=== PATIENT | male | born 1975 | race Hispanic/Latino ===

== ENCOUNTER 2022-03-04 12:12 | Inpatient (IN) | payer SELFPAY ==
[~2022-03-04 12:12] MED LIST: Lorazepam 1 MG TAB PO PRN
[2022-03-04 12:47] LABS: #Basophils 0.1 thou/uL (0.0-0.2); #Lymphocytes 0.6 thou/uL (1.20-3.40); #Monocytes 0.8 thou/uL (0.11-0.59); #Neutrophils 9.5 thou/uL (1.40-6.50); %Basophils 1.2 % (0.0-1.0); %Eosinophils 0.1 % (0.0-10.0); %Lymphocytes 5.2 % (21.0-51.0); %Monocytes 7.4 % (0.0-10.0); Hemoglobin 15.4 g/dL (14.0-18.0); Mean Corpuscular HGB CONC 36.2 g/dL (32.0-36.0); Mean Corpuscular Hemoglobin 29.9 pg (27.0-31.0); Mean Corpuscular Volume 82.7 fL (78.0-98.0); Mean Platelet Volume 6.8 fL (7.4-10.4); Platelet Count 183 thou/uL (130-400); RBC Distribution Width 15.5 % (11.5-14.5); Red Blood Cell (RBC) Count 5.15 mill/uL (4.70-6.10); White Blood Cell (WBC) Count 11.1 thou/uL (4.8-10.8)
[2022-03-04 13:02] LABS: ALT (SGPT) 86 U/L (8-55); AST (SGOT) 210 U/L (5-34); Albumin 4.4 g/dL (3.5-5.0); Alkaline Phosphatase 96 U/L (40-110); Anion Gap 28 mmol/L (10-20); BUN (Urea Nitrogen) 5 mg/dL (8.9-20.6); Bilirubin, Total 3.2 mg/dL (0.2-1.2); Calc. Creatinine Clearance 0 mL/min (70-130); Calcium 8.7 mg/dL (7.8-10.44); Carbon Dioxide 20 mmol/L (22-29); Estimated GFR 106; Globulin 4.4 g/dL (2.4-3.5); Glucose 117 mg/dL (70-105); Lipase 489 U/L (8-78); Protein, Total 8.8 g/dL (6.0-8.3)
[2022-03-04] MEDS ORDERED: Aspirin Chewable 81 MG TAB ONE (13:31)
[2022-03-04 13:40] LABS: Chloride 69 mmol/L (98-107); Sodium 115 mmol/L (136-145)
[2022-03-04 13:49] LABS: CK (CPK) 4390 U/L (30-200)
[2022-03-04 15:08] LABS: Anion Gap 25 mmol/L (10-20); BUN (Urea Nitrogen) 5 mg/dL (8.9-20.6); Calc. Creatinine Clearance 0 mL/min (70-130); Calcium 8.2 mg/dL (7.8-10.44); Carbon Dioxide 19 mmol/L (22-29); Estimated GFR 110; Glucose 109 mg/dL (70-105)
[2022-03-04 15:14] LABS: Chloride 74 mmol/L (98-107); Potassium 1.8 mmol/L (3.5-5.1); Sodium 116 mmol/L (136-145)
[2022-03-04] MEDS ORDERED: Potassium Chloride 20 MEQ TAB ONE (15:37)
[2022-03-04] MEDS ORDERED: NS 0.9% w/ 20 MEQ KCL 0 ML ONE (15:37)
[2022-03-04] MEDS ORDERED: Lorazepam (BATCHED) 2 MG/ML SYR ONE (15:42)
[2022-03-04] MEDS ORDERED: Magnesium 2 GM/50 ML BAG (IN WATER) ONE (15:52)
[2022-03-04] MEDS ORDERED: Iopamidol-370 76% 500 ML 1 ML ONE (15:54)
[2022-03-04] MEDS ORDERED: 1/2 NS w/KCL 20 mEq 1,000 ML IV SCH (16:00)
[2022-03-04 16:21] LABS: Acetaminophen Less than 10.0 mcg/mL (10.0-30.0); Alcohol 65 mg/dL (Less than 10); Salicylate Less than 8.0 mg/dL (15.0-30.0)
[2022-03-04] MEDS ORDERED: Potassium Chloride 20 MEQ TAB PO STA (16:29)
[2022-03-04 17:01] LABS: Phosphorus 2.8 mg/dL (2.3-4.7)
[2022-03-04 17:03] LABS: Magnesium 1.5 mg/dL (1.6-2.6)
[2022-03-04 17:04] LABS: Anion Gap 23 mmol/L (10-20); BUN (Urea Nitrogen) 5 mg/dL (8.9-20.6); Calc. Creatinine Clearance 0 mL/min (70-130); Carbon Dioxide 18 mmol/L (22-29); Chloride 76 mmol/L (98-107); Estimated GFR 111; Glucose 117 mg/dL (70-105); Magnesium 1.5 mg/dL (1.6-2.6)
[2022-03-04 17:08] LABS: Potassium 2.3 mmol/L (3.5-5.1); Sodium 115 mmol/L (136-145)
[2022-03-04] MEDS ORDERED: hydrALAZINE 20 MG/ML VIAL SLOW IVP PRN (17:55)
[2022-03-04] MEDS ORDERED: Acetaminophen 325 MG TAB PO PRN (17:55)
[2022-03-04] MEDS ORDERED: Ondansetron ODT 4 MG TAB PO PRN ×2 (17:55→20:30)
[2022-03-04] MEDS ORDERED: Lorazepam 2 MG/ML VIAL SLOW IVP PRN (17:56)
[2022-03-04 17:58] VITALS: BMI 24.4
[2022-03-04] MEDS: Lactated Ringer's 1,000 ML IV SCH (17:58)
[2022-03-04 18:35] LABS: SARS-CoV-2 NAA Rapid Test Not Detected (NotDetected)
[2022-03-04] MEDS ORDERED: Magnesium Sulfate In Water 4 GM in Premix Bag 1 BAG IVPB SCH (18:45)
[2022-03-04 19:28] LABS: Bacteria/HPF None Seen HPF (None Seen); Bilirubin Negative (Negative); Blood, Urine 3+ (Negative); Clarity Clear (Clear); Glucose, Urine (Dipstick) Normal (Negative); Ketone, Urine Negative (Negative); Leukocyte Negative Leu/uL (Negative); Nitrite Negative (Negative); Protein, Urine (Dipstick) 30 mg/dL (Neg-Trace); RBC/HPF None Seen HPF (0-3); Specific Gravity, Urine 1.011 (1.002-1.036); Squamous Epithelial None Seen HPF (0-3); Urobilinogen Normal mg/dL (Less than 2); WBC/HPF 0-3 HPF (0-3)
[2022-03-04 19:32] LABS: Urine Culture Reflex No No
[2022-03-04] MEDS ORDERED: Potassium Chloride 20 MEQ TAB PO SCH (20:00)
[2022-03-04] MEDS ORDERED: Lorazepam 2 MG/ML VIAL IM PRN (20:30)
[2022-03-04 20:34] LABS: Anion Gap 19 mmol/L (10-20); BUN (Urea Nitrogen) 6 mg/dL (8.9-20.6); CK (CPK) 3858 U/L (30-200); Calc. Creatinine Clearance 143 mL/min (70-130); Calcium 8.2 mg/dL (7.8-10.44); Carbon Dioxide 24 mmol/L (22-29); Chloride 76 mmol/L (98-107); Estimated GFR 112; Glucose 104 mg/dL (70-105)
[2022-03-04 20:39] LABS: Sodium 117 mmol/L (136-145)
[2022-03-04] MEDS: Lorazepam 1 MG TAB PO SCH ×3 (20:40→20:41)
[2022-03-04] MEDS: Potassium Chloride 20 MEQ TAB PO SCH (21:22)
[2022-03-05] MEDS: Lorazepam 1 MG TAB PO SCH ×4 (00:27→17:16)
[2022-03-05] MEDS: Lactated Ringer's 1,000 ML IV SCH ×2 (00:31→09:46)
[2022-03-05 01:13] LABS: Anion Gap 17 mmol/L (10-20); BUN (Urea Nitrogen) 6 mg/dL (8.9-20.6); Calc. Creatinine Clearance 143 mL/min (70-130); Calcium 8.6 mg/dL (7.8-10.44); Carbon Dioxide 26 mmol/L (22-29); Chloride 81 mmol/L (98-107); Estimated GFR 112; Glucose 93 mg/dL (70-105); Sodium 122 mmol/L (136-145)
[2022-03-05 01:16] LABS: Potassium 2.1 mmol/L (3.5-5.1)
[2022-03-05] MEDS: Potassium Chloride 20 MEQ TAB PO SCH ×4 (02:09→21:27)
[2022-03-05] MEDS ORDERED: Lorazepam 1 MG TAB PO PRN (02:21)
[2022-03-05 04:22] LABS: #Lymphocytes 0.6 thou/uL (1.20-3.40); #Monocytes 0.8 thou/uL (0.11-0.59); #Neutrophils 6.6 thou/uL (1.40-6.50); %Basophils 0.2 % (0.0-1.0); %Eosinophils 0.2 % (0.0-10.0); %Lymphocytes 7.5 % (21.0-51.0); %Neutrophils 82.1 % (42.0-75.0); Hemoglobin 13.9 g/dL (14.0-18.0); Mean Corpuscular HGB CONC 35.7 g/dL (32.0-36.0); Mean Corpuscular Hemoglobin 30.1 pg (27.0-31.0); Mean Corpuscular Volume 84.2 fL (78.0-98.0); Mean Platelet Volume 7.2 fL (7.4-10.4); Platelet Count 141 thou/uL (130-400); RBC Distribution Width 15.5 % (11.5-14.5)
[2022-03-05 04:39] LABS: Anion Gap 16 mmol/L (10-20); BUN (Urea Nitrogen) 6 mg/dL (8.9-20.6); CK (CPK) 3426 U/L (30-200); Calc. Creatinine Clearance 145 mL/min (70-130); Calcium 8.8 mg/dL (7.8-10.44); Carbon Dioxide 24 mmol/L (22-29); Chloride 85 mmol/L (98-107); Estimated GFR 113; Glucose 94 mg/dL (70-105); Sodium 123 mmol/L (136-145)
[2022-03-05 04:41] LABS: Phosphorus 1.3 mg/dL (2.3-4.7)
[2022-03-05 04:43] LABS: Potassium 2.4 mmol/L (3.5-5.1)
[2022-03-05] MEDS ORDERED: Potassium Phosphate 30 MMOL in Sodium Chloride 0.9% 250 ML 250 ML IVPB SCH (05:15)
[2022-03-05] MEDS: Thiamine 100 MG TAB PO SCH (08:29)
[2022-03-05] MEDS: Multivit, Therapeutic 1 TAB PO SCH (08:29)
[2022-03-05] MEDS: Folic Acid 1 MG TAB PO SCH (08:29)
[2022-03-05 09:37] LABS: Anion Gap 15 mmol/L (10-20); BUN (Urea Nitrogen) 6 mg/dL (8.9-20.6); Calc. Creatinine Clearance 132 mL/min (70-130); Calcium 8.7 mg/dL (7.8-10.44); Carbon Dioxide 26 mmol/L (22-29); Chloride 86 mmol/L (98-107); Estimated GFR 110; Glucose 134 mg/dL (70-105); Sodium 124 mmol/L (136-145)
[2022-03-05 09:40] LABS: Potassium 2.6 mmol/L (3.5-5.1)
[2022-03-05] MEDS: 1/2 NS w/KCL 20 mEq 1,000 ML IV SCH ×2 (11:45→20:05)
[2022-03-05 13:28] LABS: Anion Gap 15 mmol/L (10-20); BUN (Urea Nitrogen) 6 mg/dL (8.9-20.6); Calc. Creatinine Clearance 125 mL/min (70-130); Calcium 8.3 mg/dL (7.8-10.44); Carbon Dioxide 23 mmol/L (22-29); Chloride 86 mmol/L (98-107); Estimated GFR 108; Glucose 164 mg/dL (70-105); Sodium 122 mmol/L (136-145)
[2022-03-05 13:39] LABS: Potassium 2.4 mmol/L (3.5-5.1)
[2022-03-05] MEDS ORDERED: Potassium Chloride 20 MEQ TAB PO SCH ×3 (15:00→20:00)
[2022-03-05 17:29] LABS: Anion Gap 15 mmol/L (10-20); BUN (Urea Nitrogen) 6 mg/dL (8.9-20.6); Calc. Creatinine Clearance 135 mL/min (70-130); Calcium 8.3 mg/dL (7.8-10.44); Carbon Dioxide 24 mmol/L (22-29); Chloride 88 mmol/L (98-107); Estimated GFR 111; Glucose 88 mg/dL (70-105); Sodium 124 mmol/L (136-145)
[2022-03-05 17:31] LABS: Potassium 2.8 mmol/L (3.5-5.1)
[2022-03-05] MEDS ORDERED: Potassium Bicarbonate/Cit Ac 20 MEQ TAB PO SCH (18:00)
[2022-03-05 21:43] LABS: Anion Gap 16 mmol/L (10-20); BUN (Urea Nitrogen) 5 mg/dL (8.9-20.6); Calc. Creatinine Clearance 130 mL/min (70-130); Carbon Dioxide 22 mmol/L (22-29); Chloride 88 mmol/L (98-107); Estimated GFR 109; Glucose 104 mg/dL (70-105); Sodium 123 mmol/L (136-145)
[2022-03-05 22:25] LABS: Phosphorus Less than 1.0 mg/dL (2.3-4.7)
[2022-03-05 22:25] LABS: Potassium 2.5 mmol/L (3.5-5.1)
[2022-03-05] MEDS ORDERED: Potassium Phosphate 30 MMOL in Sodium Chloride 0.9% 500 ML IVPB SCH (22:30)
[2022-03-06] MEDS: Potassium Chloride 20 MEQ TAB PO SCH ×6 (00:44→21:23)
[2022-03-06] MEDS: Lorazepam 1 MG TAB PO SCH (00:44)
[2022-03-06] MEDS: 1/2 NS w/KCL 20 mEq 1,000 ML IV SCH ×3 (04:54→19:15)
[2022-03-06] MEDS: Lorazepam 0.5 MG TAB PO SCH ×3 (05:40→17:05)
[2022-03-06 06:42] LABS: Hemoglobin 12.8 g/dL (14.0-18.0); Mean Corpuscular HGB CONC 33.7 g/dL (32.0-36.0); Mean Corpuscular Hemoglobin 29.2 pg (27.0-31.0); Mean Corpuscular Volume 86.7 fL (78.0-98.0); Mean Platelet Volume 6.9 fL (7.4-10.4); Platelet Count 132 thou/uL (130-400); RBC Distribution Width 15.6 % (11.5-14.5); Red Blood Cell (RBC) Count 4.38 mill/uL (4.70-6.10); White Blood Cell (WBC) Count 7.1 thou/uL (4.8-10.8)
[2022-03-06 06:58] LABS: Anion Gap 15 mmol/L (10-20); BUN (Urea Nitrogen) 4 mg/dL (8.9-20.6); Calc. Creatinine Clearance 140 mL/min (70-130); Calcium 8.5 mg/dL (7.8-10.44); Carbon Dioxide 25 mmol/L (22-29); Chloride 91 mmol/L (98-107); Estimated GFR 111; Glucose 86 mg/dL (70-105); Magnesium 1.2 mg/dL (1.6-2.6); Sodium 128 mmol/L (136-145)
[2022-03-06 07:01] LABS: CK (CPK) 1314 U/L (30-200); Phosphorus 2.3 mg/dL (2.3-4.7)
[2022-03-06] MEDS ORDERED: Potassium Chloride 20 MEQ in Lactated Ringer's 1,000 ML IV SCH (07:15)
[2022-03-06] MEDS ORDERED: Potassium Phosphate 30 MMOL in Sodium Chloride 0.9% 250 ML 250 ML IVPB SCH (07:15)
[2022-03-06] MEDS: Magnesium 2 GM/50 ML(in water) 2 GM in Premix Bag 1 BAG IVPB SCH ×3 (07:50→10:22)
[2022-03-06] MEDS: Folic Acid 1 MG TAB PO SCH (07:53)
[2022-03-06] MEDS: Thiamine 100 MG TAB PO SCH (07:53)
[2022-03-06] MEDS: Multivit, Therapeutic 1 TAB PO SCH (07:53)
[2022-03-06 17:23] LABS: Albumin 3.7 g/dL (3.5-5.0); Anion Gap 16 mmol/L (10-20); BUN (Urea Nitrogen) 4 mg/dL (8.9-20.6); BUN/Creatinine Ratio 5.26; Calc. Creatinine Clearance 143 mL/min (70-130); Calcium 8.4 mg/dL (7.8-10.44); Carbon Dioxide 24 mmol/L (22-29); Chloride 92 mmol/L (98-107); Estimated GFR 112; Glucose 81 mg/dL (70-105); Phosphorus 3.1 mg/dL (2.3-4.7); Potassium 3.2 mmol/L (3.5-5.1); Sodium 129 mmol/L (136-145)
[2022-03-07] MEDS: Lorazepam 0.5 MG TAB PO SCH (00:05)
[2022-03-07] MEDS: Potassium Chloride 20 MEQ TAB PO SCH ×6 (00:05→21:38)
[2022-03-07] MEDS: Lorazepam 1 MG TAB PO PRN ×3 (03:02→21:38)
[2022-03-07] MEDS ORDERED: Lorazepam 0.5 MG TAB PO PRN (06:00)
[2022-03-07 06:16] LABS: Anion Gap 13 mmol/L (10-20); BUN (Urea Nitrogen) 4 mg/dL (8.9-20.6); Calc. Creatinine Clearance 142 mL/min (70-130); Calcium 8.5 mg/dL (7.8-10.44); Carbon Dioxide 27 mmol/L (22-29); Chloride 95 mmol/L (98-107); Estimated GFR 111; Glucose 89 mg/dL (70-105); Magnesium 1.5 mg/dL (1.6-2.6); Phosphorus 2.3 mg/dL (2.3-4.7); Sodium 132 mmol/L (136-145)
[2022-03-07] MEDS: 1/2 NS w/KCL 20 mEq 1,000 ML IV SCH ×3 (06:25→23:30)
[2022-03-07] MEDS: Folic Acid 1 MG TAB PO SCH (08:51)
[2022-03-07] MEDS: Multivit, Therapeutic 1 TAB PO SCH (08:51)
[2022-03-07] MEDS: Thiamine 100 MG TAB PO SCH (08:51)
[2022-03-07] MEDS: Magnesium 2 GM/50 ML(in water) 2 GM in Premix Bag 1 BAG IVPB SCH ×3 (08:52→12:07)
[2022-03-07 09:22] LABS: CK (CPK) 642 U/L (30-200)
[2022-03-08] MEDS: Potassium Chloride 20 MEQ TAB PO SCH ×6 (00:35→20:45)
[2022-03-08] MEDS: Lorazepam 1 MG TAB PO PRN ×2 (03:40→21:58)
[2022-03-08] MEDS: 1/2 NS w/KCL 20 mEq 1,000 ML IV SCH (09:03)
[2022-03-08] MEDS: Multivit, Therapeutic 1 TAB PO SCH (09:03)
[2022-03-08] MEDS: Folic Acid 1 MG TAB PO SCH (09:03)
[2022-03-08] MEDS: Thiamine 100 MG TAB PO SCH (09:03)
[2022-03-08 10:07] LABS: Anion Gap 12 mmol/L (10-20); BUN (Urea Nitrogen) 4 mg/dL (8.9-20.6); CK (CPK) 326 U/L (30-200); Calc. Creatinine Clearance 0 mL/min (70-130); Carbon Dioxide 27 mmol/L (22-29); Chloride 93 mmol/L (98-107); Estimated GFR 108; Glucose 103 mg/dL (70-105); Magnesium 1.6 mg/dL (1.6-2.6); Potassium 3.4 mmol/L (3.5-5.1); Sodium 129 mmol/L (136-145)
[2022-03-08 10:10] LABS: Phosphorus 1.5 mg/dL (2.3-4.7)
[2022-03-08] MEDS: Magnesium 2 GM/50 ML(in water) 2 GM in Premix Bag 1 BAG IVPB SCH ×2 (11:33→15:06)
[2022-03-08] MEDS ORDERED: Potassium Phosphate 30 MMOL in Sodium Chloride 0.9% 250 ML 250 ML IVPB SCH (12:00)
[2022-03-09] MEDS: Potassium Chloride 20 MEQ TAB PO SCH ×4 (00:19→11:55)
[2022-03-09 05:39] LABS: Anion Gap 12 mmol/L (10-20); BUN (Urea Nitrogen) 5 mg/dL (8.9-20.6); Calc. Creatinine Clearance 0 mL/min (70-130); Calcium 9.1 mg/dL (7.8-10.44); Carbon Dioxide 27 mmol/L (22-29); Chloride 94 mmol/L (98-107); Estimated GFR 108; Glucose 86 mg/dL (70-105); Magnesium 1.9 mg/dL (1.6-2.6); Phosphorus 2.6 mg/dL (2.3-4.7); Potassium 3.4 mmol/L (3.5-5.1); Sodium 130 mmol/L (136-145)
[2022-03-09] MEDS: Folic Acid 1 MG TAB PO SCH (09:27)
[2022-03-09] MEDS: Thiamine 100 MG TAB PO SCH (09:28)
[2022-03-09] MEDS: Multivit, Therapeutic 1 TAB PO SCH (09:28)
[2022-03-09 11:22] VITALS: BP 100/66; TEMP 98.1
== END 2022-03-09 14:30 | disposition home or self-care (01) | DRG 643 ==
LOC: ERS 12:12 → CCU 16:03 → SJJU 17:34
PROVIDERS: ADMIT Family Medicine; ATTEND Family Medicine
DX: E22.2 Syndrome of inappropriate secretion of antidiuretic hormone (principal); K85.20 Alcohol induced acute pancreatitis without necrosis or infection; M62.82 Rhabdomyolysis; E83.42 Hypomagnesemia; E83.39 Other disorders of phosphorus metabolism; E87.6 Hypokalemia; Z20.822 Contact with and (suspected) exposure to COVID-19; F17.210 Nicotine dependence, cigarettes, uncomplicated; E86.9 Volume depletion, unspecified; K70.9 Alcoholic liver disease, unspecified; F10.20 Alcohol dependence, uncomplicated; R07.89 Other chest pain; I25.2 Old myocardial infarction; Z71.41 Alcohol abuse counseling and surveillance of alcoholic
CPT/HCPCS: 36415; 71045; 71275; 74177; 80048; 80053; 80307; 81001; 82533; 82550; 83690; 83735; 83930; 83935; 84100; 84443; 84484; 85025; 85027; 85379; 93005; 93010; 93306; 96361; 96374; 96375; J2060; J3411; J3475; J3480; J7030; J7050; J7120; Q9967; U0002

== ENCOUNTER 2025-03-10 17:56 | Inpatient (IN) | payer OTHER, SELFPAY ==
[~2025-03-10 17:56] MED LIST changes: +Iopamidol 370 76% 100 ML VIAL ONE; -Lorazepam 1 MG TAB PO PRN
[2025-03-10 19:11] LABS: #Basophils 0.03 10x3/uL (0.0-0.2); #Eosinophils Less than 0.03 10x3/uL (0.0-0.7); #Monocytes 0.63 10x3/uL (0.11-0.59); #Neutrophils 4.51 10x3/uL (1.40-6.50); %Basophils 0.5 % (0.0-1.0); %Eosinophils 0.2 % (0.0-10.0); %Lymphocytes 18.0 % (21.0-51.0); %Monocytes 9.9 % (0.0-10.0); %Neutrophils 71.1 % (42.0-75.0); Hematocrit 39.5 % (42.0-52.0); Hemoglobin 14.3 g/dL (14.0-18.0); Mean Corpuscular Hemoglobin 28.0 pg (27.0-31.0); Mean Corpuscular Volume 77.5 fL (78.0-98.0); Platelet Count 146 10x3/uL (130-400); Red Blood Cell (RBC) Count 5.10 mill/uL (4.70-6.10); White Blood Cell (WBC) Count 6.34 10x3/uL (4.8-10.8)
[2025-03-10 19:45] LABS: ALT (SGPT) 101 U/L (Less than 45); AST (SGOT) 163 U/L (11-34); Albumin 4.2 g/dL (3.1-4.5); Alkaline Phosphatase 76 U/L (40-110); Anion Gap 21 mmol/L (10-20); BUN (Urea Nitrogen) 6 mg/dL (8.9-20.6); Bilirubin, Total 2.1 mg/dL (0.3-1.2); Calc. Creatinine Clearance 0 mL/min (70-130); Calcium 9.6 mg/dL (7.8-10.44); Carbon Dioxide 21 mmol/L (22-29); Chloride 84 mmol/L (98-107); Globulin 4.6 g/dL (2.4-3.5); Glucose 104 mg/dL (70-105); Lipase 73 U/L (8-78); Potassium 2.4 mmol/L (3.5-5.1); Sodium 124 mmol/L (136-145)
[2025-03-10 19:48] LABS: Bacteria/HPF None Seen HPF (None Seen); CAUTI Indications for Culture Pelvic or flank pain; Glucose, Urine (Dipstick) Normal (Negative); Leukocyte Negative Leu/uL (Negative); Protein, Urine (Dipstick) 50 mg/dL (Neg-Trace); RBC/HPF 0-3 HPF (0-3); Specific Gravity, Urine 1.004 (1.002-1.036); WBC/HPF 0-3 HPF (0-3)
[2025-03-10 19:52] LABS: Urine Culture Reflex No No
[2025-03-10] MEDS ORDERED: Pantoprazole 40 MG VIAL ONE (20:13)
[2025-03-10] MEDS ORDERED: Ondansetron PF 4 MG/2 ML Vial ONE (20:13)
[2025-03-10] MEDS ORDERED: Potassium Chloride 20 MEQ (100 mL) BAG ONE (20:13)
[2025-03-10 20:22] LABS: Magnesium 1.1 mg/dL (1.6-2.6)
[2025-03-10 20:23] LABS: Acetaminophen Less than 10 mcg/mL (Less than 10); Salicylate Less than 8.0 mg/dL (Less than 8.0)
[2025-03-10 20:27] LABS: Troponin I Less than 0.010 ng/mL (< 0.028)
[2025-03-10] MEDS ORDERED: Magnesium 2 GM/50 ML BAG (IN WATER) ONE (22:14)
[2025-03-10] MEDS ORDERED: Ondansetron PF 4 MG/2 ML Vial IVP PRN (23:19)
[2025-03-10] MEDS ORDERED: Acetaminophen 325 MG TAB PO PRN (23:19)
[2025-03-10] MEDS ORDERED: Electrolyte Replacement Protocol 1 EACH FS SCH (23:30)
[2025-03-11 00:08] LABS: Cocaine Metabolite Screen Negative (Negative); THC/Cannabinoid Screen Negative (Negative); Tricyclic Screen Negative (Negative)
[2025-03-11] MEDS: Multivitamins, Adult 10 ML, Thiamine HCl 100 MG, Folic Acid 1 MG in Dextrose 5 %-0.45 %... IV SCH (01:15)
[2025-03-11] MEDS: Potassium Chloride 20 MEQ in Premix 1 BAG IVPB SCH ×2 (01:15→05:34)
[2025-03-11] MEDS: Magnesium Sulfate In Water 4 GM in Premix 1 BAG IVPB SCH ×2 (01:15→14:24)
[2025-03-11 01:23] VITALS: BMI 25.5
[2025-03-11 04:58] LABS: ALT (SGPT) 86 U/L (Less than 45); AST (SGOT) 127 U/L (11-34); Albumin 3.7 g/dL (3.1-4.5); Alkaline Phosphatase 71 U/L (40-110); Anion Gap 18 mmol/L (10-20); BUN (Urea Nitrogen) 7 mg/dL (8.9-20.6); Bilirubin, Total 2.8 mg/dL (0.3-1.2); Calc. Creatinine Clearance 120 mL/min (70-130); Calcium 8.7 mg/dL (7.8-10.44); Carbon Dioxide 23 mmol/L (22-29); Chloride 89 mmol/L (98-107); Globulin 4.0 g/dL (2.4-3.5); Glucose 101 mg/dL (70-105); Magnesium 1.4 mg/dL (1.6-2.6); Potassium 2.2 mmol/L (3.5-5.1); Sodium 128 mmol/L (136-145)
[2025-03-11 05:02] LABS: #Basophils Less than 0.03 10x3/uL (0.0-0.2); #Eosinophils 0.05 10x3/uL (0.0-0.7); #Monocytes 0.67 10x3/uL (0.11-0.59); #Neutrophils 4.38 10x3/uL (1.40-6.50); %Basophils 0.3 % (0.0-1.0); %Eosinophils 0.8 % (0.0-10.0); %Lymphocytes 18.5 % (21.0-51.0); %Monocytes 10.6 % (0.0-10.0); %Neutrophils 69.5 % (42.0-75.0); Hematocrit 35.9 % (42.0-52.0); Hemoglobin 12.9 g/dL (14.0-18.0); Mean Corpuscular Hemoglobin 28.4 pg (27.0-31.0); Mean Corpuscular Volume 78.9 fL (78.0-98.0); Platelet Count 125 10x3/uL (130-400); Red Blood Cell (RBC) Count 4.55 mill/uL (4.70-6.10); White Blood Cell (WBC) Count 6.31 10x3/uL (4.8-10.8)
[2025-03-11] MEDS: 1/2 NS w/Potassium 20 mEq 1,000 ML IV SCH (05:34)
[2025-03-11] MEDS: Folic Acid 1 MG TAB PO SCH (14:25)
[2025-03-11] MEDS: Multivit, Therapeutic 1 TAB PO SCH (14:25)
[2025-03-11] MEDS: Pantoprazole 40 MG DR.TAB PO SCH (14:25)
[2025-03-11] MEDS: cefTRIAXone\\ROCEPHIN 1 GM in Sodium Chloride 0.9% 100 ML IVPB SCH (14:29)
[2025-03-11 17:47] LABS: Potassium 2.6 mmol/L (3.5-5.1)
[2025-03-12 01:22] LABS: Potassium 2.8 mmol/L (3.5-5.1)
[2025-03-12 04:41] LABS: Hematocrit 37.7 % (42.0-52.0); Hemoglobin 13.2 g/dL (14.0-18.0); Mean Corpuscular Hemoglobin 28.0 pg (27.0-31.0); Mean Corpuscular Volume 80.0 fL (78.0-98.0); Platelet Count 119 10x3/uL (130-400); Red Blood Cell (RBC) Count 4.71 mill/uL (4.70-6.10); White Blood Cell (WBC) Count 6.50 10x3/uL (4.8-10.8)
[2025-03-12 04:53] LABS: Anion Gap 13 mmol/L (10-20); BUN (Urea Nitrogen) 10 mg/dL (8.9-20.6); Calc. Creatinine Clearance 142 mL/min (70-130); Calcium 8.5 mg/dL (7.8-10.44); Carbon Dioxide 25 mmol/L (22-29); Chloride 95 mmol/L (98-107); Glucose 83 mg/dL (70-105); Magnesium 1.8 mg/dL (1.6-2.6); Potassium 2.9 mmol/L (3.5-5.1); Sodium 130 mmol/L (136-145)
[2025-03-12] MEDS: Potassium Chloride 20 MEQ in Premix 1 BAG IVPB SCH (06:26)
[2025-03-12] MEDS: Magnesium 2 GM/50 ML(in water) 2 GM in Premix 1 BAG IVPB SCH (08:50)
[2025-03-13 05:27] LABS: Anion Gap 13 mmol/L (10-20); BUN (Urea Nitrogen) 10 mg/dL (8.9-20.6); Calc. Creatinine Clearance 142 mL/min (70-130); Calcium 8.5 mg/dL (7.8-10.44); Carbon Dioxide 24 mmol/L (22-29); Chloride 98 mmol/L (98-107); Glucose 86 mg/dL (70-105); Potassium 2.6 mmol/L (3.5-5.1); Sodium 132 mmol/L (136-145)
[2025-03-13 09:25] LABS: Magnesium 1.4 mg/dL (1.6-2.6)
[2025-03-13] MEDS: Potassium Chloride 20 MEQ in Premix 1 BAG IVPB SCH (09:26)
[2025-03-13] MEDS: Magnesium 2 GM/50 ML(in water) 2 GM in Premix 1 BAG IVPB SCH (09:26)
[2025-03-13 18:10] LABS: Potassium 3.9 mmol/L (3.5-5.1)
[2025-03-13] MEDS: Thiamine 100 MG TAB PO SCH (23:43)
[2025-03-14 04:53] LABS: Anion Gap 14 mmol/L (10-20); BUN (Urea Nitrogen) 16 mg/dL (8.9-20.6); Calc. Creatinine Clearance 102 mL/min (70-130); Calcium 8.9 mg/dL (7.8-10.44); Carbon Dioxide 25 mmol/L (22-29); Chloride 100 mmol/L (98-107); Glucose 100 mg/dL (70-105); Magnesium 1.3 mg/dL (1.6-2.6); Potassium 3.4 mmol/L (3.5-5.1); Sodium 136 mmol/L (136-145)
[2025-03-14] MEDS: Magnesium Sulfate In Water 4 GM in Premix 1 BAG IVPB SCH (05:17)
[2025-03-14 08:08] VITALS: BP 133/80; TEMP 97.8
== END 2025-03-14 12:00 | disposition home or self-care (01) | DRG 897 ==
LOC: ERS 17:56 → 2NO 23:44
PROVIDERS: ADMIT Student in an Organized Health Care Education/Training Program; ATTEND Internal Medicine
DX: F10.129 Alcohol abuse with intoxication, unspecified (principal); E87.20 Acidosis, unspecified; E87.1 Hypo-osmolality and hyponatremia; E87.8 Other disorders of electrolyte and fluid balance, not elsewhere classified; K76.0 Fatty (change of) liver, not elsewhere classified; F17.210 Nicotine dependence, cigarettes, uncomplicated; Y90.6 Blood alcohol level of 120-199 mg/100 ml; E83.42 Hypomagnesemia; E87.6 Hypokalemia; K82.8 Other specified diseases of gallbladder; I25.2 Old myocardial infarction
CPT/HCPCS: 36415; 71045; 74177; 76705; 78226; 80048; 80053; 80306; 80307; 81001; 83605; 83690; 83735; 84100; 84484; 85025; 85027; 87426; 93005; 96365; 96366; 96368; 96375; A9537; J0696; J2405; J2470; J2543; J3411; J3475; J3480; J7030; J7042; J7120; Q9967